=== PATIENT | female | born 1990 | race African-American/Black ===

== ENCOUNTER 2016-12-08 09:07 | Emergency (ER) | payer MEDICAID | END 2016-12-08 11:42 | disposition home or self-care (01) | LOC: ER 09:07 | DX: J02.9 Acute pharyngitis, unspecified (principal); J30.2 Other seasonal allergic rhinitis; Z79.899 Other long term (current) drug therapy; F17.210 Nicotine dependence, cigarettes, uncomplicated | CPT/HCPCS: 87804; 87880 ==